=== PATIENT | female | born 1985 | race Caucasian/White ===

== ENCOUNTER 2017-12-30 17:11 | Emergency (ER) | payer MEDICAID ==
[2017-12-30 17:58] LABS: SQUAMOUS EPITHIAL 13 /hpf (0-5); URINE BACTERIA FEW (<OCC); URINE BILIRUBIN NEGATIVE (NEGATIVE); URINE BLOOD 2+ (NEGATIVE); URINE CLARITY Hazy (Clear); URINE COLOR Yellow (YELLOW); URINE GLUCOSE (UA) NORMAL (Normal); URINE LEUKOCYTE ESTERASE 2+ Leu/uL (Negative); URINE PROTEIN NEGATIVE (NEGATIVE); URINE UROBILINOGEN NORMAL mg/dL (0.2-1.0)
[2017-12-30 18:15] LABS: HCG,QUALITATIVE URINE NEGATIVE (NEGATIVE)
--- NOTE | 2017-12-30 18:55 | C.PDOC ---
History Of Present Illness 32 year old female presents to the emergency department with complaints of painful urination and urinary frequency since this morning. Patient reports experiencing similar symptoms in the past with a urinary infection. PT notes she is currently ending her menses. Denies back pain, fever, n/v, vaginal discharge, or rash. Time Seen by Provider: 12/30/17 18:22 Chief Complaint (Nursing): Female Genitourinary History Per: Patient History/Exam Limitations: no limitations Onset/Duration Of Symptoms: Hrs Current Symptoms Are (Timing): Still Present Quality Of Discomfort: Cramping, "Pain" Associated Symptoms: Other (abdominal pain and cramping). denies: Back Pain Past Medical History Reviewed: Historical Data, Nursing Documentation, Vital Signs Vital Signs: Last Vital Signs Temp 98.5 F 12/30/17 19:08 Pulse 79 12/30/17 19:08 Resp 18 12/30/17 19:08 BP 109/76 12/30/17 19:08 Pulse Ox 98 12/30/17 19:42 - Medical History PMH: Anemia Surgical History: No Surg Hx - [facility] Procedures INJECT/INFUSE NEC (09/05/14) MANUAL ASSIST DELIV NEC (06/27/13) Family History: States: Unknown Family Hx - Social History Hx Tobacco Use: Yes Hx Alcohol Use: Yes Hx Substance Use: No - Immunization History Hx Tetanus Toxoid Vaccination: No Hx Influenza Vaccination: No Hx Pneumococcal Vaccination: No Review Of Systems Except As Marked, All Systems Reviewed And Found Negative. Gastrointestinal: Positive for: Abdominal Pain Musculoskeletal: Negative for: Back Pain Physical Exam - Physical Exam Appears: Well, Non-toxic, No Acute Distress Skin: Normal Color, Warm, Dry Head: Atraumatic, Normacephalic Eye(s): bilateral: Normal Inspection, EOMI Nose: Normal Oral Mucosa: Moist Neck: Normal ROM, Supple Chest: Symmetrical Respiratory: No Accessory Muscle Use Gastrointestinal/Abdominal: Soft, Tenderness (suprapubic) Back: No CVA Tenderness, No Vertebral Tenderness Extremity: Normal ROM Neurological/Psych: Oriented x3, Normal Speech, Normal Cognition ED Course And Treatment O2 Sat by Pulse Oximetry: 98 (RA) Pulse Ox Interpretation: Normal Progress Note: Plan: Macrobid 100mg PO. Pyridium 100mg PO. Urine Culture. Urinalysis. PT was instructed to follow up with PMD in 1-2 days or return to ER if symtpoms persist or worsen. Disposition - Disposition Disposition: HOME/ ROUTINE Disposition Time: 18:54 Condition: STABLE Additional Instructions: Follow up with your primary medical doctor or clinic in 2-5 days for further evaluation. Take medications as prescribed. Return to the emergency department at any time if symptoms persist or worsen. Prescriptions: Nitrofurantoin Macrocrystals [Macrobid] 1 cap PO BID #14 cap Phenazopyridine HCl [Pyridium] 100 mg PO TID #6 tablet Instructions: Urinary Tract Infection, Adult (DC) Forms: [employer] ([employer]) - Clinical Impression Clinical Impression: UTI (urinary tract infection) - PA / [employer] / Resident Statement MD/DO has reviewed & agrees with the documentation as recorded. - Scribe Statement The provider has reviewed the documentation as recorded by the Scribe (Carlo Mcfarlane) All medical record entries made by the Scribe were at my direction and personally dictated by me. I have reviewed the chart and agree that the record accurately reflects my personal performance of the history, physical exam, medical decision making, and the department course for this patient. I have also personally directed, reviewed, and agree with the discharge instructions and disposition.
[2017-12-30 19:08] VITALS: BP 109/76; PULSE 79; RESP 18; TEMP 98.5
[2017-12-30 19:40] VITALS: O2SAT 98
== END 2017-12-30 19:24 | disposition home or self-care (01) ==
LOC: C.ER 17:11
DX: N39.0 Urinary tract infection, site not specified (principal); Z72.0 Tobacco use